=== PATIENT | male | born 1995 | race Caucasian/White ===

== ENCOUNTER 2017-09-12 11:51 | Inpatient (IN) | payer OTHER ==
[~2017-09-12] VITALS: Ht 175.3 cm; Wt 72.6 kg
[2017-09-12] MEDS ORDERED: LORAZEPAM 2 MG/1 ML VIAL IM PRN (16:45)
[2017-09-12] MEDS ORDERED: ACETAMINOPHEN 325 MG TABLET PO PRN (16:45)
[2017-09-12] MEDS ORDERED: MAGNESIUM HYDROXIDE 30 ML LIQUID UDC PO PRN (16:45)
[2017-09-12] MEDS ORDERED: LOPERAMIDE HCL 2 MG CAPSULE PO PRN ×2 (16:45)
[2017-09-12] MEDS ORDERED: LORAZEPAM 1 MG TABLET PO PRN (16:45)
[2017-09-12] MEDS ORDERED: IBUPROFEN 600 MG TABLET PO PRN (16:45)
[2017-09-12] MEDS ORDERED: HYDROXYZINE PAMOATE 25 MG CAPSULE PO PRN (16:45)
[2017-09-12] MEDS ORDERED: ONDANSETRON ODT 4 MG TAB.RAPDIS SL PRN (16:45)
[2017-09-12] MEDS ORDERED: ONDANSETRON 4 MG/2 ML VIAL IM PRN (16:45)
[2017-09-12] MEDS ORDERED: diphenhydrAMINE 50 MG CAPSULE PO PRN (16:45)
[2017-09-12] MEDS ORDERED: DICYCLOMINE HCL 20 MG TABLET PO PRN (16:45)
[2017-09-12] MEDS ORDERED: MIRALAX 17 GM POWD.PACK PO PRN (16:45)
[2017-09-12] MEDS ORDERED: CLONIDINE HCL 0.1 MG TABLET PO PRN (16:45)
[2017-09-12] MEDS ORDERED: MAG HYDROX/AL HYDROX/SIMETH 30 ML LIQUID UDC PO PRN (16:45)
[2017-09-12] MEDS ORDERED: METHOCARBAMOL 750 MG TABLET PO PRN (16:45)
--- NOTE | 2017-09-12 16:45 | NUR ---
PRE ADMISSION 22 year old male from [place], [place], alert and oriented x4, verbally responsive able to make needs known. not in any apparent acute distress. bp:116/64 p: 77 t: 98.0 r: 16 o2 sat: 98%. Patient denies any food or drug allergies. Patient reports substance use history of: heroin, and occasionally marijuana. Patient denies taking any home medications. Patient denies any pre existing medical or psychiatric conditions. Patient reports two episodes of seizure in lifetime, patient reports he did seek medical care, per patient doctors recommendations were patient to have EEG and brain MRI, per patient never went to have exams done. Patient denies seizures being withdrawal induced. Patient denies family history of substance abuse. Patient was explained all policies and procedures with good verbal understanding.
[2017-09-12 16:53] VITALS: BP 116/64
--- NOTE | 2017-09-12 17:10 | NUR ---
ADMISSION Patient arrived to [facility] unit at 1710, patients body search completed by male intake staff, body assessment completed by male staff nurse, skin is intact, no bruising discoloration or breakdown noted. Patient is 5 feet 9 inches and weighs 160 lbs. Patient body oriented to unit and to room, educated regarding call light use, fall and seizure precautions in place. Patients vital signs WNL. Patient denies any food or drug allergies. Patient reports substance use history of: heroin, began using at the age of 16, for the past week patient reports he relapsed and has been smoking 0.5-1 gram daily x 1 week, last used 09/12/2017 0.3grams smoked in the morning. Marijuana, began using at the age of 14, for the past week patient reports he relapsed and has been smoking 2 grams occasionally for one week. patient reports treatment history of: 1. [facility] IN [place] IN 08/24/2017-08/30/2017 2. [facility] IN [place] FOR 30 DAYS IN 07/2017 3. [facility] [place] FOR 1.5 MONTHS IN DECEMBER 2015 4. [facility] IN [place] FOR 60 DAYS OCT-NOV 2015 Patient reports he left [facility] to visit parole office in [place], then reports he relapsed. Patient reported on unit that he is taking Seroquel 100mg PO HS for sleep, did not bring medication with him. Patient denies any pre existing medical/psychiatric conditions. Patient reports he has had two episodes of seizures six months apart last year, per patient does not think are "drug induced" per patient he did seek medical care, doctors recommended patient to have an "EEG, and MRI" but patient reports he never when back to get them done. Patient denies any family history of substance abuse or any pre existing medical conditions. Patient reports his primary care physician is Dr. Palomino in [facility], does not recall the name of the office/clinic. Patient is calm and cooperative, pupils are equal and reactive to light. abdomen is soft and non distended. denies any N/V/D, bowel sounds heard in all quadrants. Lungs clear upon ausculation. Patient was seen and examined by Dr. Quezada with new admitting orders. Psychiatrist notified of new admission. Safety measures in place. call light kept with in reach. safety measures in place.
[2017-09-12 17:29] LABS: ALANINE AMINOTRANSFERASE 27 U/L (16-63); ALKALINE PHOSPHATASE 92 U/L (50-136); ASPARTATE AMINOTRANSFERASE 11 U/L (15-37); BILIRUBIN,TOTAL 0.2 mg/dL (0.2-1.0); CARBON DIOXIDE 31 mmol/L (21-32); CHLORIDE 102 mmol/L (98-107); CREATININE 0.8 mg/dL (0.6-1.3); GLUCOSE 99 mg/dL (74-106); MAGNESIUM 2.1 mg/dL (1.8-2.4); POTASSIUM 4.9 mmol/L (3.5-5.1); TOTAL PROTEIN, SERUM 7.4 g/dL (6.4-8.2); UREA NITROGEN, BLOOD 14 mg/dL (7-18)
[2017-09-12 17:33] LABS: ETHANOL < 3 MG/DL (0-0)
[2017-09-12 17:37] LABS: *AMPHETAMINE, URINE NEGATIVE (NEGATIVE); *BARBITURATE, URINE NEGATIVE (NEGATIVE); *CANNABINOID, URINE POSITIVE (NEGATIVE); *COCCAINE, URINE NEGATIVE (NEGATIVE); *OPIATE, URINE POSITIVE (NEGATIVE); *PHENCYCLIDINE SCREEN,URINE NEGATIVE (NEGATIVE)
[2017-09-12] MEDS ORDERED: QUET100T PO (17:39)
--- NOTE | 2017-09-12 18:53 | NUR ---
END OF SHIFT Patient endorsement report given to night nurse nurse, all pertinent information discussed. patient fall and seizure precautions observed at all times. patient will begin a 4 day modified Subutex tomorrow morning, will have PRN Subutex as needed for s/sx of withdrawal.
[2017-09-12] MEDS ORDERED: BUPRENORPHINE HCL 2 MG TAB.SUBL SL PRN (19:00)
[2017-09-12 20:00] VITALS: BP 124/61
--- NOTE | 2017-09-12 20:00 | NUR ---
1999 Patient received awake, alert and standing in hallway, at the door to his room, # [phone], socializing with selected patient. Patient responds to nurse's greeting and introduction with eye contact, a smile and, " Hi, I'm doing okay. How are you?" Patient's color is pink and his skin is clean, warm, dry and intact. Patient is oriented to person, place, day, date, time and his personal situation. Patient states that he attended [facility] and he ate his regular diet dinner and has been drinking fluids ad minerva, with no gastric issues, since his admission this afternoon. Patient denies any pain or other discomfort and he voices no requests for anything at this time. Vital signs are: 98-60-14 124/61, O2 Sat 97%, COWS 1. Patient was admitted on 09/12/17 for recent relapse for Heroin and Marijuana, which patient has been using for the past week. Prior to this week's relapse, patient had been in a treatment facility in [place] for approximately 30 days, and he had been in 3 other facilities before that, he states. Patient is pleasant, cooperative and verbally appropriate when interacting with nurse. Patient states that he will go downstairs to hospital [facility] shortly for a smoke break. Bed is locked and in lowest position, padded bed rails are up X 2, and call light on patient's bed. Fall/seizure precautions continue.
[2017-09-12] MEDS: GABAPENTIN 300 MG CAPSULE PO SCH (20:46)
[2017-09-12] MEDS: LEVETIRACETAM 500 MG TABLET PO SCH (20:46)
--- NOTE | 2017-09-12 20:46 | NUR ---
PRN MEDICATION: Prn Benadryl 50 mg p.o. given per request for sleep medication.
[2017-09-12] MEDS ORDERED: LORAZEPAM 1 MG TABLET PO ONE (21:00)
--- NOTE | 2017-09-12 21:46 | NUR ---
REASSESSMENT PRN MEDICATION: Patient is downstairs on hospital patio for smoke break. Unable to reassess patient at this time.
--- NOTE | 2017-09-13 | NUR ---
Patient is sleeping soundly with eyes closed and respirations deep, regular, unlabored at 12. V/S deferred.
--- NOTE | 2017-09-13 04:00 | NUR ---
Patient continues to sleep soundly with eyes closed and respirations regular, unlabored at 12.
--- NOTE | 2017-09-13 06:30 | NUR ---
0630 Patient slept a total of 8 hours and he had 2 voids and 1 stools. Total intake was 1,100 ml p.o. Prn medication given noted separately per floor protocol. V/SS afebrile, last COWS 1 at 1999. Patient is presently sleeping comfortably in stable condition with eyes closed and respirations unlabored at 12.
--- NOTE | 2017-09-13 07:28 | NUR ---
BEGINNING OF SHIFT Patient endorsement report received from shiftman nurse, all pertinent information discussed. Patient is a 22 year old male admitted on: 09/12/2017 with admitting Dx: Opiate/BZO Dependence. Patient is scheduled to begin a 4 day Subutex taper this morning, continues under close observation,received PRN: Benadryl during shift. Patient with last cow score of: 1. Patient slept for 8 hours. Patient received awake, alert and oriented x4, educated patient regarding plan of care for the day and medication regimen with good verbal understanding. Safety measures in place. call light kept with in reach, Fall and seizure precautions in place. will continue to monitor closely.
[2017-09-13 08:17] LABS: BASOPHILS % (AUTO) 0.6 % (0.0-2.0); EOSINOPHILS % (AUTO) 0.8 % (0.0-7.0); HEMATOCRIT 46.2 % (36.7-47.1); HEMOGLOBIN 16.1 g/dL (12.5-16.3); LYMPHOCYTES # (AUTO) 1.6 K/uL (20.0-40.0); LYMPHOCYTES % (AUTO) 25.2 % (20.5-51.5); MEAN CORPUSCULAR HEMOGLOBIN 32.8 uug (23.8-33.4); MEAN CORPUSCULAR HGB CONC 35 g/dL (32.5-36.3); MEAN CORPUSCULAR VOLUME 94.5 fL (73.0-96.2); MONOCYTES # (AUTO) 0.3 K/uL (2.0-10.0); MONOCYTES % (AUTO) 4.1 % (0.0-11.0); NEUTROPHILS # (AUTO) 4.4 K/uL (1.8-8.9); NEUTROPHILS % (AUTO) 69.3 % (38.5-71.5); PLATELET COUNT (AUTO) 173 K/uL (152-348); WHITE BLOOD COUNT (AUTO) 6.4 K/uL (3.6-10.2)
[2017-09-13 08:28] VITALS: BP 117/72
[2017-09-13] MEDS ORDERED: TUBERCULIN,PURIF.PROT.DERIV. 5 TU/0.1 ML TEST ID ONE (09:00)
[2017-09-13] MEDS: LEVETIRACETAM 500 MG TABLET PO SCH ×2 (09:03→20:57)
[2017-09-13] MEDS: BUPRENORPHINE HCL 2 MG TAB.SUBL SL SCH ×3 (09:03→20:58)
[2017-09-13] MEDS: GABAPENTIN 300 MG CAPSULE PO SCH ×2 (09:03→20:58)
[2017-09-13 13:13] VITALS: BP 116/72
--- NOTE | 2017-09-13 14:49 | NUR ---
prompted to attend group by therapist, client may attend.
[2017-09-13 16:42] VITALS: BP 122/78
--- NOTE | 2017-09-13 18:53 | NUR ---
END OF SHIFT Patient alert and oriented x4, patient compliant with therapeutic plan of care. Patient with admitting Dx:Opiate dependence. Continues on 4 day Subutex taper as ordered, well tolerated, no ASE noted. Patient currently on day 1 of taper, well tolerated. 0900 assessment patient presented with: difficulty sitting still, flushed, dilated pupils, mild bone and joint aches, stuffy nose, tremors that can be felt but not seen, and mild anxiety with cow score of: 9; 1300 assessment patient presented with: flushed, difficulty sitting still, dilated pupils, mild bone and joint aches, tremors that can be felt but not seen and mild anxiety with cow score of: 7; 1700 assessment patient presented with: flushed, difficulty sitting still, dilated pupils, mild bone and joint aches, tremors that can be felt but not seen and mild anxiety with cow score of: 7. 23Patient encouraged adequate PO fluid intake as tolerated, Encouraged to attend group therapies/sessions to learn new coping skills to prevent relapse, noted attending and participating. denies any SI/HI. Patient administered no PRNs during shift. Patients safety measures are in place. all needs met and rendered. Patient endorsement report given to shift leader nurse, all pertinent information discussed. Safety measurers in place. will continue to monitor.
[2017-09-13 20:00] VITALS: BP 114/74
--- NOTE | 2017-09-13 20:00 | NUR ---
1999 Patient received awake, alert and lying quietly in position of comfort, watching television. Upon seeing nurse, patient smiles and states, " Hi, how are you?" Patient's color is pink and his skin is clean, warm, dry and intact. Patient is oriented to person, place, day, date and his personal situation. Patient denies any pain or other discomforts at this time. Patient states that he has been attending [facility] groups and eating his regular diet meal trays and drinking fluids ad minerva with no gastric issues so far. Vital signs are: 97.8-87-16 114/74, O2 Sat 98%, CIWA 3 . Patient is overall quiet, with somewhat flat affect, but he is cooperative and verbally appropriate when interacting with nurse. Patient was admitted on 09/12/17 for Heroin and Marijuana withdrawal and he is currently on a 4-Day Subutex medication taper, which he is apparently tolerating well thus far. Fall/seizure precautions continue. Patient voices no requests for anything at this time. Bed is locked and in lowest position, bed rails are up X 2 and call light within patient's easy reach. Addendum: 09/14/17 at 0603 by ELHAM CEDILLO RN 1999 Correction, COWS 3, not CIWA.
--- NOTE | 2017-09-13 20:46 | NUR ---
PRN MEDICATION: Prn Benadryl 50 mg p.o. given per request for sleep medication.
--- NOTE | 2017-09-13 21:46 | NUR ---
REASSESSMENT PRN MEDICATION: Patient is downstairs on hospital pharmacy for smoke break. Unable to reassess patient at this time.
--- NOTE | 2017-09-14 | NUR ---
Patient is sleeping soundly and does not wish to be awakened for V/S, CIWA to be done at this time. These assessments deferred. Addendum: 09/14/17 at 0607 by ELHAM CEDILLO RN 0000 Correction, COWS deferred, not CIWA.
--- NOTE | 2017-09-14 04:00 | NUR ---
Patient sleeping soundly and does not wish to be awakened for V/S, CIWA to be done at this time. V/S, CIWA deferred. Addendum: 09/14/17 at 0605 by ELHAM CEDILLO RN 0 Correction, COWS deferred, not CIWA.
--- NOTE | 2017-09-14 06:30 | NUR ---
0630 Patient slept a total of 6 hours and he had 3 voids and no stools. Total intake was 1,250 ml p.o. Prn medication given noted separately per floor protocol. V/SS afebrile, last COWS 3 at 1999. Patient is presently sleeping comfortably in stable condition.
--- NOTE | 2017-09-14 07:29 | NUR ---
BEGINNING OF SHIFT Patient endorsement report received from gerontological nurse practitioner nurse, all pertinent information discussed. Patient is a 22 year old male admitted on: 09/12/2017 with admitting Dx: Opiate/BZO Dependence. Patient is continues on subutex taper as orderd and is scheduled to begin day 2 of taper, continues under close observation,received PRN: Benadryl during shift. Patient with last cow score of: 3. Patient slept for 6 hours. Patient received awake, alert and oriented x4, educated patient regarding plan of care for the day and medication regimen with good verbal understanding. Safety measures in place. call light kept with in reach, Fall and seizure precautions in place. will continue to monitor closely.
[2017-09-14 09:00] VITALS: BP 134/65
[2017-09-14] MEDS ORDERED: BUPRENORPHINE HCL 2 MG TAB.SUBL SL SCH (09:00)
[2017-09-14] MEDS: GABAPENTIN 300 MG CAPSULE PO SCH ×2 (09:17→21:12)
[2017-09-14] MEDS: LEVETIRACETAM 500 MG TABLET PO SCH ×2 (09:17→21:12)
[2017-09-14 12:05] LABS: HEPATITIS B SURFACE AG Negative (Negative)
[2017-09-14 12:30] VITALS: BP 131/79
[2017-09-14] MEDS: BUPRENORPHINE HCL 2 MG TAB.SUBL SL SCH ×2 (14:19→21:12)
[2017-09-14 17:21] VITALS: BP 111/64
--- NOTE | 2017-09-14 18:51 | NUR ---
END OF SHIFT Patient alert and oriented x4, patient compliant with therapeutic plan of care. Patient with admitting Dx:Opiate dependence. Continues on 4 day Subutex taper as ordered, well tolerated, no ASE noted. Patient currently on day 2 of taper, well tolerated. 0900 assessment patient presented with: c/o chills, dilated pupils, mild bone and joint aches, tremors that can be felt but not seen, and mild anxiety with cow score of: 6; 1300 assessment patient presented with: c/o chills, dilated pupils, mild bone and joint aches, tremors that can be felt but not seen, and mild anxiety with cow score of: 5; 1700 assessment patient presented with: c/o chills, dilated pupils, mild bone and joint aches, tremors that can be felt but not seen, and mild anxiety with cow score of: 5. Patient encouraged adequate PO fluid intake as tolerated, Encouraged to attend group therapies/sessions to learn new coping skills to prevent relapse, noted attending and participating. denies any SI/HI. Patient administered no PRNs during shift. Patients safety measures are in place. all needs met and rendered. Patient endorsement report given to retail shift leader nurse, all pertinent information discussed. Safety measurers in place. will continue to monitor.
[2017-09-14 20:00] VITALS: BP 118/68
--- NOTE | 2017-09-14 20:05 | NUR ---
START OF SHIFT Received report from day shift nurse. Pt attended a group meeting and returned to his room after. He is a 22 yo male admitted to [facility] on 09/12 for Opiate dependence. He is A&O x4 and ambulatory. NKA, full code status, and on a regular diet. PMH of seizure x2 last year not r/t withdrawal. On admission he reported using heroin 0.5-1 gram per day and marijuana. 4 day subutex taper started yesterday. Pt reports anxiety with hot and cold flashes. He is observed with larger than normal pupils. Taper due tonight. Fall and seizure precautions in place. Bed is down with call light in reach.
[2017-09-14] MEDS: QUETIAPINE FUMARATE 100 MG TABLET PO PRN (22:27)
--- NOTE | 2017-09-14 22:28 | NUR ---
PRN Seroquel Pt reports inability to sleep. PRN Seroquel administered.
--- NOTE | 2017-09-14 23:28 | NUR ---
PRN Seroquel reassessment PRN Seroquel effective. Pt is lying in bed resting with eyes closed. Respirations even and unlabored. Safety measures in place.
[2017-09-14] MEDS ORDERED: KETOROLAC TROMETHAMINE 30 MG INJ IM PRN (23:30)
[2017-09-15] VITALS: BP 122/68
--- NOTE | 2017-09-15 | NUR ---
0000 COWS deferred COWS ordered Q4HWA. Pt is lying in bed resting with eyes closed. Respirations even and unlabored. Vital signs obtained. Safety measures in place.
--- NOTE | 2017-09-15 04:00 | NUR ---
0400 Vital signs refused/COWS deferred Pt refused to be woken for 0400 vitals. He is lying in bed resting with eyes closed. Respirations even and unlabored. COWS ordered Q4HWA. Safety measures in place.
--- NOTE | 2017-09-15 07:20 | NUR ---
END OF SHIFT Report provided to day shift nurse. Pt is lying in bed resting. He is a 22 yo male admitted to [facility] on 09/12 for Opiate dependence. He is A&O x4 and ambulatory. NKA, full code status, and on a regular diet. PMH of seizure x2 last year not r/t withdrawal. On admission he reported using heroin 0.5-1 gram per day and marijuana. 4 day subutex taper started 09/13. PRN Seroquel administered. Last COWS 4. He drank 480mL and slept for 7 hours. Fall and seizure precautions in place. Bed is down with call light in reach.
--- NOTE | 2017-09-15 07:39 | NUR ---
BEGINNING OF SHIFT Patient endorsement report received from janitorial services supervisor nurse, all pertinent information discussed. Patient is a 22 year old male admitted on: 09/12/2017 with admitting Dx: Opiate/BZO Dependence. Patient is continues on subutex taper as orderd and is scheduled to begin day 3 of taper, continues under close observation,received PRN: seroquel, during shift. Patient with last cow score of: 4. Patient slept for 7 hours. Patient received awake, alert and oriented x4, educated patient regarding plan of care for the day and medication regimen with good verbal understanding. Safety measures in place. call light kept with in reach, Fall and seizure precautions in place. will continue to monitor closely.
[2017-09-15 08:08] VITALS: BP 114/64
[2017-09-15] MEDS: BUPRENORPHINE HCL 2 MG TAB.SUBL SL SCH ×3 (08:45→21:30)
[2017-09-15] MEDS: LEVETIRACETAM 500 MG TABLET PO SCH ×2 (08:45→21:30)
[2017-09-15] MEDS: GABAPENTIN 300 MG CAPSULE PO SCH ×3 (08:45→21:30)
--- NOTE | 2017-09-15 10:00 | NUR ---
therapist prompted client to attend groups today and not isolate in bedroom. Client agreed to attend.
[2017-09-15 13:00] VITALS: BP 130/77
[2017-09-15 16:53] VITALS: BP 98/65
--- NOTE | 2017-09-15 18:37 | NUR ---
END OF SHIFT Patient alert and oriented x4, patient compliant with therapeutic plan of care. Patient with admitting Dx:Opiate dependence. Continues on 4 day Subutex taper as ordered, well tolerated, no ASE noted. Patient currently on day 3 of taper, well tolerated. 0900 assessment patient presented with: c/o chills, mild bone and joint aches, tremors that can be felt but not seen, and mild anxiety with cow score of: 4; 1300 assessment patient presented with: c/o chills, mild bone and joint aches, tremors that can be felt but not seen, and mild anxiety with cow score of: 4; 1700 assessment patient presented with: c/o chills, mild bone and joint aches, tremors that can be felt but not seen, and mild anxiety with cow score of: 4. Detox medication effective at reducing withdrawal symptoms. Patient encouraged adequate PO fluid intake as tolerated, Encouraged to attend group therapies/sessions to learn new coping skills to prevent relapse, noted attending and participating. denies any SI/HI. Patient administered no PRNs during shift. Patients safety measures are in place. all needs met and rendered. Patient endorsement report given to assistant shift supervisor nurse, all pertinent information discussed. Safety measurers in place. will continue to monitor.
[2017-09-15 20:00] VITALS: BP 121/83
--- NOTE | 2017-09-15 20:05 | NUR ---
START OF SHIFT Received report from day shift nurse. Pt attended a group meeting and returned to his room after. He is a 22 yo male admitted to [facility] on 09/12 for Opiate dependence. He is A&O x4 and ambulatory. NKA, full code status, and on a regular diet. PMH of seizure x2 last year not r/t withdrawal. On admission he reported using heroin 0.5-1 gram per day and marijuana. 4 day subutex taper started 09/13. He reports mild body aches. Medications are working well to manage withdrawal symptoms. Fall and seizure precautions in place. Bed is down with call light in reach.
[2017-09-15] MEDS: QUETIAPINE FUMARATE 100 MG TABLET PO PRN (23:17)
--- NOTE | 2017-09-15 23:19 | NUR ---
PRN Seroquel Pt reports inability to sleep. PRN Seroquel administered.
--- NOTE | 2017-09-16 | NUR ---
0000 Vitals refused/COWS deferred Pt refused to be woken for 0000 vitals. He is lying in bed resting with eyes closed. Respirations even and unlabored. COWS ordered Q4HWA. Safety measures in place.
--- NOTE | 2017-09-16 00:20 | NUR ---
PRN Seroquel reassessment PRN Seroquel effective. Pt is lying in bed resting with eyes closed. Respirations even and unlabored. Safety measures in place.
--- NOTE | 2017-09-16 04:00 | NUR ---
0400 Vitals refused/COWS deferred Pt refused to be woken for 0400 vitals. He is lying in bed resting with eyes closed. Respirations even and unlabored. COWS ordered Q4HWA. Safety measures in place.
--- NOTE | 2017-09-16 07:24 | NUR ---
END OF SHIFT Report provided to day shift nurse. Pt is lying in bed resting. He is a 22 yo male admitted to [facility] on 09/12 for Opiate dependence. He is A&O x4 and ambulatory. NKA, full code status, and on a regular diet. PMH of seizure x2 last year not r/t withdrawal. On admission he reported using heroin 0.5-1 gram per day and marijuana. 4 day subutex taper started 09/13. Medications are working well to manage withdrawal symptoms. PRN Seroquel administered. Last COWS was 2. He drank 1200mL and slept for 5 hours. Fall and seizure precautions in place. Bed is down with call light in reach.
[2017-09-16 08:00] VITALS: BP 106/64
--- NOTE | 2017-09-16 08:00 | NUR ---
VSS 98.2-94-20 BP 94/54. SATS 99% ON ROOM AIR. CIWA=12, COWS=8. PATIENT IS MILDLY AGITATED AND PATIENT HAS INSIGHT INTO HIS ILLNESS. PATIENT IS HOWEVER, PLEASANT AND COOPERATIVE TO NURSING INTERVENTIONS. PATIENT IS SLIGHTLY TREMULOUS AND IS AWARE OF THIS A WITHDRAWAL SYMPTOM. NURSE NOTES PATIENT HAS NOT STARTED BREAKFAST YET; BUT, WILL REASSESS PATIENT LATER ON AND PROVIDE AM MEDS A LITTLE LATER SO THAT HE DOESN'T CONSUME THESE ON AN EMPTY STOMACH. PATIENT STATED THAT HE WILL PERFORM ADLS AND DOESN'T APPEAR DISHOVELED AT ALL. PATIENT SHOWS NO SIGNS OF ACUTE CARDIAC/RESPIRATORY DISTRESS OR SUPPRESSION. Addendum: 09/16/17 at 1212 by OSBALDO RIOS RN PLEASE DISREGARD THE NOTE AT 08:00. PLEASE NOTE THAT 08:00 VSS WERE 98.2-64-19 BP 106/64. SATS 98% ON ROOM AIR. THERE IS NOT CIWA ON THIS PATIENT AND THE COWS=1 PATIENT IS MILDLY AGITATED AND HAS INSIGHT INTO HIS ILLNESS. PATIENT IS COOPERATIVE TO ALL PHASES OF NURING CARE. PATIENT IS SLIGHTLY TREMULOUS AND IS AWARE OF THE FACT THAT HE IS SLIGHT WITHDRAWAL. PATIENT HASN'T STARTED BREAKFAST YET AND NURSE WILL PASS HIS MEDS LAST SO THAT HE DOESN'T TAKE HIS MEDS ON AN EMPTY STOMACH. PATIENT HAS STATED THAT HE WILL PERFORM HIS ADLS LATER AND DOESN'T APPEAR DISHOVELED. NO SIGNS OF ACUTE CARDIAC/RESPIRATORY DISTRESS OR SUPPRESSION. PATIENT SHOWS NO SIGNS OF CARDIAC/RESPIRATORY DISTRESS SOR SUPPRESSION.
--- NOTE | 2017-09-16 08:05 | NUR ---
PLEASE CORRECT COWS = 1. VSS 98.2-64-19 PROJECT ARCHITECT 106/64. SATS 98% ON ROOM AIR. PATIENT IS PLEASANT AND COOPERATIVE AND PATIENT IS IN SLIGHT WITHDRAWAL. PATIENT HAS HAD NO SEIZURES AND SHOWS NO SIGNS OF DISTRESS.
[2017-09-16] MEDS ORDERED: BUPRENORPHINE HCL 2 MG TAB.SUBL SL SCH (09:00)
[2017-09-16] MEDS: GABAPENTIN 300 MG CAPSULE PO SCH ×3 (10:17→21:30)
[2017-09-16] MEDS: LEVETIRACETAM 500 MG TABLET PO SCH ×2 (10:17→21:30)
[2017-09-16 12:00] VITALS: BP 127/77
--- NOTE | 2017-09-16 12:00 | NUR ---
VSS 98.5-86-20 BP 127/77. SATS 98% ON ROOM AIR. PATIENT ATTENDS SOME ACTIVITIES. WENT OUT TO SMOKE AND IS AMBULATORY WITH A STEADY GAIT WITHOUT ASSIST. ATE 75% ON LUNCH WITHOUT DIFFICULTY. COWS=1 PATIENT IS STABLE AND SEEMS TO HAVE RECOVERED QUITE WELL WITH NO SYMPTOMS OF ACUTE WITHDRAWAL. PATIENT SHOWS NO SIGNS OF ACUTE CARDIAC/RESPIRATORY DISTRESS OR SUPPRESSION.
--- NOTE | 2017-09-16 12:44 | NUR ---
Therapist prompted client to come to group and be with others. Client agreed to attend group.
[2017-09-16 16:00] VITALS: BP 130/85
--- NOTE | 2017-09-16 16:00 | NUR ---
VSS 96.4-92-20 BP 130/85. SATS 98% ON ROOM AIR. COWS=2 PATIENT IS AMBULATING WITH A STEADY GAIT. PATIENT SHOWS NO SIGNS OF ACUTE WITHDRAWAL. PATIENT SHOWS NO SIGNS OF ACUTE CARDIAC/RESPIRATORY DISTRESS OR SUPPRESSION.
--- NOTE | 2017-09-16 17:05 | NUR ---
Client was prompted to attend group therapy. Client stated that he would make an effort to attend.
--- NOTE | 2017-09-16 18:30 | NUR ---
END OF SHIFT NOTE PLEASE NOTE THAT PPD WAS NEGATIVE AND DOCUMENTED IN CHART UNDER LABS. PATIENT RESTS QUIETLY AND SHOWS NO SIGNS OF ACUTE DISTRESS.
--- NOTE | 2017-09-16 19:00 | NUR ---
Start of Shift Note: Report received from day shift nurse. Pt is 22M admitted for Opiate Dependence. Pt was in group activity during the start of shift. Pt is AOx4 without s/s of acute distress. Pt is full code, on regular diet, and on fall precautions. Pt noted with NKA. Pt reports hx of seizures. Pt has completed 4-day Subutex taper and is scheduled to be discharged tomorrow morning. Per day shift nurse, last COWS was 2. Bed in lowest position. Side rails up x2. Call light functioning and within reach. All needs attended and met. Will continue to monitor.
[2017-09-16] MEDS ORDERED: HYDR-3895 PO (19:37)
[2017-09-16] MEDS ORDERED: DICY20TA28 PO (19:37)
[2017-09-16] MEDS ORDERED: LEVE500T9 PO (19:37)
[2017-09-16] MEDS ORDERED: IBUP-1955 PO (19:37)
[2017-09-16] MEDS ORDERED: GABA-534 PO (19:37)
[2017-09-16] MEDS ORDERED: METH-406 PO (19:37)
[2017-09-16] MEDS ORDERED: CLON0.1T14 PO (19:37)
[2017-09-16 20:00] VITALS: BP 131/79
[2017-09-16] MEDS: QUETIAPINE FUMARATE 100 MG TABLET PO PRN (22:52)
--- NOTE | 2017-09-16 22:52 | NUR ---
Seroquel PRN: Pt requested medication for sleep. Seroquel PRN given as ordered. Will continue to monitor.
[2017-09-17] VITALS: BP 127/84
--- NOTE | 2017-09-17 04:00 | NUR ---
Vitals refused/COWS deferred: Pt in bed with eyes closed. Pt refused vitals to be taken at this time. Respirations even and unlabored. RR: 16. Call light functioning and within reach. All needs attended and met. Will continue to monitor.
--- NOTE | 2017-09-17 07:27 | NUR ---
End of Shift Notes: Pt is 22M admitted for Opiate Dependence. Pt is AOx4 without s/s of acute distress. Pt is full code, on regular diet, and on fall precautions. Pt noted with NKA. Pt reports hx of seizures. Pt has completed 4-day Subutex taper and is scheduled to be discharged tomorrow morning. Pt slept for 6 hours. Last COWS 1. No PRNs given. Pt scheduled to discharge today. No N/V noted during the shift. Fall and Sz precautions observed. Bed in lowest position. Side rails up x2. Call light functioning and within reach. All needs attended and met. Will endorse to day shift nurse.
--- NOTE | 2017-09-17 07:30 | NUR ---
start of shift note: received pt from night nurse nurse, pt is in stable condition at this time no s/s of pain or discomfort. pt is admitted to [facility] for opiate withdrawal/dependence. pt is set to discharge today. pt's last cows 1 and slept for 6 hrs. will assist pt in discharging and will continue to monitor pt for any changes
[2017-09-17] MEDS: LEVETIRACETAM 500 MG TABLET PO SCH (09:11)
[2017-09-17] MEDS: GABAPENTIN 300 MG CAPSULE PO SCH (09:11)
--- NOTE | 2017-09-17 09:30 | NUR ---
discharge note: pt left the unit in stable condition no s/s of pain or discomfort or withdrawal symptoms. pt teaching administered and pt verbalized understanding.pt's V/s WNL. pt's personal belongings were returned. pt will be transferred to able to change via private car
== END 2017-09-17 09:47 | disposition other institution (70) | DRG 895 ==
LOC: SRC 16:07
PROVIDERS: ADMIT Internal Medicine; ATTEND Internal Medicine
PROC: HZ2ZZZZ Detoxification Services for Substance Abuse Treatment (ICD-10-PCS; principal; 2017-09-12)
PROC: HZ41ZZZ Group Counseling for Substance Abuse Treatment, Behavioral (ICD-10-PCS; 2017-09-13)
PROC: HZ31ZZZ Individual Counseling for Substance Abuse Treatment, Behavioral (ICD-10-PCS; 2017-09-15)
DX: F11.23 Opioid dependence with withdrawal (principal); G40.919 Epilepsy, unspecified, intractable, without status epilepticus; G47.00 Insomnia, unspecified; Z59.1 Inadequate housing; Z79.899 Other long term (current) drug therapy; F17.210 Nicotine dependence, cigarettes, uncomplicated; F12.90 Cannabis use, unspecified, uncomplicated; F41.9 Anxiety disorder, unspecified; F15.10 Other stimulant abuse, uncomplicated
CPT/HCPCS: 36415; 70030-TC; 80307; 80349; 80361; 83735; 85025; 86580; 86592; 86705; 86803; 87340; 87806; G0480; Q0163